=== PATIENT | female | born 1995 | race Caucasian/White ===

== ENCOUNTER 2019-08-04 12:08 | Observation (INO) | payer SELFPAY ==
[~2019-08-04 12:08] MED LIST: CEPHALEXIN500 M1 PO
[2019-08-04 13:04] LABS: BASO % 0.2 % (0.0-2.0); EOS # 0.1 (0.0-0.7); EOS % 0.3 % (0-4.0); GRAN # 13.7 (1.4-6.5); GRAN % 78.9 % (42.2-75.2); HEMOGLOBIN 11.7 g/dl (12.5-16.0); LYMPH # 2.5 (1.2-3.4); LYMPH % 14.3 % (20.0-51.0); MEAN CELL VOLUME 87 fl (80.0-100.0); MEAN CORPUSCULAR HEMOGLOBIN 31 pg (27.0-31.0); MEAN CORPUSCULAR HGB CONC 35 g/dl (33.0-37.0); MEAN PLATELET VOLUME 9.9 fl (7.4-10.4); PLATELET COUNT 246 K/mm3 (130-400); RED BLOOD COUNT 3.84 M/mm3 (4.10-5.30); REDCELL DISTRIBUTION WIDTH-CV 12.2 % (11.5-14.5)
[2019-08-04 13:05] LABS: HEMATOCRIT 33.4 % (37.0-47.0)
[2019-08-04 13:14] LABS: ALBUMIN 4.1 gm/dL (3.5-5.0); BILIRUBIN,TOTAL 0.7 mg/dL (0.0-1.0); CALCIUM 9.3 mg/dL (8.4-10.2); CREATININE, serum 0.46 (0.52-1.25); POTASSIUM 3.7 mmol/L (3.4-5.0); TOTAL PROTEIN 7.6 gm/dL (6.4-8.2)
--- NOTE | 2019-08-04 15:15 | NUR ---
1515 Patient to room 222 from ER via wheelchair. Patient is occitan speaking only and the manager battery line was used to communicate with patient. Patient alert and oriented, she c/o pain but is unable to rate it. She is visibly uncomfortable. Assessment completed, VSS. INT noted to right AC - LR started at 150 ml/hr. Patient oriented to call light.
[2019-08-04 15:30] VITALS: BP 100/59; PULSE 98; TEMP 98.3
--- NOTE | 2019-08-04 18:40 | NUR ---
In room for bedside report. Chastity Starks RN and Yasmeen Bailey RN attempt to doppler FHT but no FHT found. Ultrasound for FHT ordered per Dr. Gandhi order. Assessment and vital signs completed.
[2019-08-04 18:50] VITALS: BP 111/64; PULSE 94; TEMP 99.2
--- NOTE | 2019-08-04 19:35 | NUR ---
Ultrasound in room.
--- NOTE | 2019-08-04 20:32 | NUR ---
Patient resting in bed, does not appear to be in any physical discomfort at this time. Telephone validation leader hotline used to traslate to patient the findings from the ultrasound and further plan of care. Patient states understanding to validation leader and patient asks if she can eat. Patient rates current cramping pain a "2" and denies need for pain medication at this time. Dr. santoyo called and orders received.
[2019-08-04 21:28] VITALS: BP 104/65; PULSE 92; TEMP 98.5
--- NOTE | 2019-08-04 21:28 | NUR ---
Patient sitting up in bed talking to significant other. Patient sitting up in bed eating chicken and noodle soup.
[2019-08-05 01:36] VITALS: BP 94/60; PULSE 87; TEMP 98.6
[2019-08-05 04:55] VITALS: BP 93/64; PULSE 82; TEMP 99
--- NOTE | 2019-08-05 05:45 | NUR ---
at bedside. Speculum exam completed. Product of conception removed by . Discharge orders received. Pericare provided. Call light within reach.
[2019-08-05] MEDS ORDERED: MOTRIN 800800 MG/TAB PO (06:09)
--- NOTE | 2019-08-05 08:10 | NUR ---
Vital signs stable, pt denies any pain at this time. Assessment complete and vaginal bleeding scant at this time. 0842: Telephone deckhand hotline used to go over discharge instructions. Instructed pt on when and how to call the physician. Pt verbalizes understanding and does not have any questions. Prescription for Motrin given and F/U appt with Dr Gandhi given to patient for August 23 at 10am. Pt verbalizes understanding. 0900:Pt taken to personal vehicle per WC.
[2019-08-05 08:15] VITALS: BP 98/58; PULSE 85; TEMP 98.6
== END 2019-08-05 09:00 | disposition home or self-care (01) ==
LOC: COL.ER 12:08 → OB 14:31
PROVIDERS: Emergency Medicine; ADMIT Obstetrics & Gynecology
DX: O03.9 Complete or unspecified spontaneous abortion without complication (principal); Z87.448 Personal history of other diseases of urinary system
CPT/HCPCS: G0378; J1170; J1885; J2270; J3010; J7030; J7120

== ENCOUNTER 2020-09-23 07:56 | Inpatient (IN) | payer MEDICAID ==
[2020-09-23] VITALS (40 sets, daily range): BP systolic 101–134; BP diastolic 55–90; PULSE 77–116; TEMP 97.5–98.5
[~2020-09-23] VITALS: Ht 162.6 cm; Wt 84.1 kg
[~2020-09-23 07:56] MED LIST changes: +MOTRIN 800800 MG/TAB PO
--- NOTE | 2020-09-23 08:05 | NUR ---
0805-G2L0 39.2 week non-salvadorean speaking patient to LR 6 with complaints of contractions since 299. Blood Bank Business Manager line used. Cervix /-[address] Gandhi notified. Assessment complete. Conesents reviewed and signed. 0820-IV to right hand, blood collected and sent to lab per orders. ANDRES Aquino notified of patients desire for epdirual.
[2020-09-23 08:29] LABS: BASO % 0.1 % (0.0-2.0); EOS % 0.4 % (0-4.0); GRAN # 7.8 (1.4-6.5); GRAN % 73.2 % (42.2-75.2); HEMATOCRIT 37.9 % (37.0-47.0); HEMOGLOBIN 12.9 g/dl (12.5-16.0); LYMPH % 18.6 % (20.0-51.0); MEAN CELL VOLUME 84 fl (80.0-100.0); MEAN CORPUSCULAR HEMOGLOBIN 29 pg (27.0-31.0); MEAN CORPUSCULAR HGB CONC 34 g/dl (33.0-37.0); MEAN PLATELET VOLUME 10.6 fl (7.4-10.4); MONO # 0.8 (0.1-0.6); MONO % 7.2 % (1.7-9.3); PLATELET COUNT 205 K/mm3 (130-400); RED BLOOD COUNT 4.51 M/mm3 (4.10-5.30); REDCELL DISTRIBUTION WIDTH-CV 15.6 % (11.5-14.5)
--- NOTE | 2020-09-23 08:30 | NUR ---
Assumed care of patient. 0835 Dr. Gandhi here, visits with patient.
--- NOTE | 2020-09-23 09:00 | NUR ---
0905 Anesthesia here, visits with patient via enterpeter on the phone.09 Catheter placed by anesthesia Adrian barlow 09 Test dose given by anesthesia.
--- NOTE | 2020-09-23 10:45 | NUR ---
1050 Dr. Diehl here, arom done, small amount of light meconium fluid. Pad changed and repositioned.
--- NOTE | 2020-09-23 11:00 | NUR ---
Rests in bed, alert. Denies any needs at this time.
--- NOTE | 2020-09-23 11:30 | NUR ---
Rests in bed, alert. Denies any pain at this time.
--- NOTE | 2020-09-23 12:15 | NUR ---
1220 Dr. Hoffman here, visits with patient through translater. Pad changed, repositioned patient.
--- NOTE | 2020-09-23 14:00 | NUR ---
1410 Patient called out. Points down toward rectal area. Large amount of bowel movement, loose noted. This nurse and Blaire cleaned patient. Repositioned in bed.
--- NOTE | 2020-09-23 15:30 | NUR ---
Rests in bed, alert. Pad changed with loose tanish stool.
--- NOTE | 2020-09-23 16:00 | NUR ---
1610 Pushes with contractions. Does well with encouragement.
--- NOTE | 2020-09-23 16:30 | NUR ---
Continues to push with contractions.
--- NOTE | 2020-09-23 16:45 | NUR ---
1648 Dr. Hoffman called to come to delivery.1655 Dr. Hoffman in room, preps for delivery. Continues to push with contractions. 1655 Dr. Hoffman here, preps for delivery. 1712 Spontaneous delivery of baby girl by Dr. Hoffman. 1718 Spontaneous delivery of placenta by Dr. Hoffman. Pitocin started at 333ccs an hour.
--- NOTE | 2020-09-23 17:15 | NUR ---
Holds baby lovingly. Repair work done by Dr. Hoffman.
[2020-09-24 00:45] VITALS: BP 105/45; PULSE 90; TEMP 98.5
[2020-09-24 04:15] VITALS: BP 108/58; PULSE 100; TEMP 98
[2020-09-24 06:38] VITALS: BP 116/58; PULSE 107; TEMP 98.7
--- NOTE | 2020-09-24 06:50 | NUR ---
USED GFS IT TRANSLATE: PATIENT STATES SHE IS IN PAIN. MOTRIN PROVIDED. ASSEMENT COMPLETE, PATIENT STATES BABY IS HUNGRY. BOTTLE PROVIDED. ASKED PATIENT AND SIGNIFICANT OTHER WHAT THEY WOULD LIKE FOR BREAKFAST. PLACED BREASKFAST ORDER TO THE KITCHEN
[2020-09-24 07:33] LABS: HEMATOCRIT 29.2 % (37.0-47.0); HEMOGLOBIN 9.9 g/dl (12.5-16.0)
[2020-09-24] MEDS ORDERED: MOTRIN 800800 MG/TAB PO (09:50)
[2020-09-24 12:00] VITALS: BP 123/68; PULSE 80; TEMP 98
[2020-09-24 15:49] VITALS: BP 113/66; PULSE 90; TEMP 98
[2020-09-24 20:15] VITALS: BP 121/67; PULSE 92; TEMP 97.7
[2020-09-25 07:20] VITALS: BP 111/65; PULSE 93; TEMP 98.2
[2020-09-25] MEDS ORDERED: PERCOCET 325 MG1 TA2 PO (08:56)
== END 2020-09-25 11:20 | disposition home or self-care (01) | DRG 807 ==
LOC: LDRO 07:56 → OB 08:17 → LDR 08:17 → OB 20:50
PROVIDERS: Obstetrics & Gynecology; ADMIT Obstetrics & Gynecology
PROC: 10E0XZZ Delivery of Products of Conception, External Approach (ICD-10-PCS; principal; 2020-09-23)
PROC: 0KQM0ZZ Repair Perineum Muscle, Open Approach (ICD-10-PCS; 2020-09-23)
PROC: 10907ZC Drainage of Amniotic Fluid, Therapeutic from Products of Conception, Via Natural or Artificial Opening (ICD-10-PCS; 2020-09-23)
DX: O99.02 Anemia complicating childbirth (principal); Z37.0 Single live birth; O77.0 Labor and delivery complicated by meconium in amniotic fluid; O70.1 Second degree perineal laceration during delivery; Z3A.39 39 weeks gestation of pregnancy; D64.9 Anemia, unspecified
CPT/HCPCS: J2590; J7120

== ENCOUNTER 2022-01-11 04:43 | Inpatient (IN) | payer SELFPAY ==
[2022-01-11] VITALS (17 sets, daily range): BP systolic 74–140; BP diastolic 35–78; PULSE 68–111; TEMP 98.1–98.6
[~2022-01-11] VITALS: Ht 165.1 cm; Wt 84.5 kg
[~2022-01-11 04:43] MED LIST changes: +PERCOCET 325 MG1 TA2 PO
[2022-01-11 05:24] LABS: BASO % 0.3 % (0.0-2.0); EOS % 0.3 % (0.0-4.0); HEMATOCRIT 36.1 % (37.0-47.0); LYMPH # 3.7 K/mm3 (1.2-3.4); LYMPH % 31.9 % (20.0-51.0); MEAN CELL VOLUME 82 fl (80.0-100.0); MEAN CORPUSCULAR HEMOGLOBIN 27 pg (27-31); MEAN CORPUSCULAR HGB CONC 33 g/dl (33.0-37.0); MEAN PLATELET VOLUME 10.6 fl (7.4-10.4); MONO # 0.7 K/mm3 (0.1-0.6); MONO % 6.3 % (1.7-9.3); PLATELET COUNT 277 K/mm3 (130-400); RED BLOOD COUNT 4.38 M/mm3 (4.10-5.30); REDCELL DISTRIBUTION WIDTH-CV 13.6 % (11.5-14.5)
--- NOTE | 2022-01-11 05:30 | NUR ---
EVERTON CAMPOS HERE TO PLACE EPIDURAL, PT IS SITTING UP FOR PLACEMENT. 0544 TEST DOSE GIVEN. 0550 PT TO SEMI FOWLERS POSITION. BP 103/59, P-109, RESP 20 FHR 135, MOD VARIBILTY, ACCELS, NO DECELS.
--- NOTE | 2022-01-11 06:30 | NUR ---
0615- IN PATIENT ROOM TO PERFORM VAGINAL EXAM. SVE . AROM PERFORMED BY . PATIENT TOLERATED WELL. EFM TRACING REASSURING. 0625- PT BP 88/44 NOTED BY THIS RN. 0635- THIS RN ADMINISTERED INITIAL 10MG EPHEDRINE PER PRN ORDER FOR LOW BP. 0641- BP REASSESSED, 87/49. THIS RN ADMINISTERED A SECOND DOSE OF 10MG EPHEDRINE PER ORDER. 0646- BP REASSESSED 95/55.
--- NOTE | 2022-01-11 07:46 | NUR ---
0762- Dr Gandhi at bedside. Pt and room prepped for delivery. [facility] [employer] at bedside. Pt begins pushing with [facility]. 0746- of viable male , infant dried and stimulated by MD, vigorous crying noted. Cord clamped and cut. Infant to mother's abd where tended to by nursery RNs. 0750- Spontaneous delivery of placenta. Pitocin started at 333ml/hr. Fundus massaged to firm by MD. Perineum intact per MD. Pericare performed. Clean chux and ice pack under Pt. Pt repositioned to high fowlers. skin-2-skin with mother.
[2022-01-11] MEDS ORDERED: PRENATAL TABLET PO (09:34)
--- NOTE | 2022-01-11 10:10 | NUR ---
Using [employer]: Pt ambulates to to bathroom with standby assist. Voids a large amount in toilet, not measures. Pericare completed and explained. Pt transfered to [facility] via wheelchair. Oriented to room. Pt denies needs at this time. Call light within reach.
[2022-01-12 06:45] VITALS: BP 134/84; PULSE 88; TEMP 98.2
[2022-01-12] MEDS ORDERED: MOTRIN 800800 MG/TAB PO (07:29)
--- NOTE | 2022-01-12 09:44 | NUR ---
Initial visit; Parents appeared to speak Espanol only. Forestry Pilot smiled and let them know by the sign of the cross and pointing to herself who she was. They smiled and nodded "thank you."
--- NOTE | 2022-01-12 15:30 | NUR ---
1530-Discharge instructions reviwed with patient by LARON Ch. Patient explained in detail border status. All questions answered. remains in nursery care.
== END 2022-01-12 15:42 | disposition home or self-care (01) | DRG 807 ==
LOC: LDRO 04:43 → LDR 05:16 → OB 05:16
PROVIDERS: ADMIT Student in an Organized Health Care Education/Training Program
PROC: 10E0XZZ Delivery of Products of Conception, External Approach (ICD-10-PCS; principal; 2022-01-11)
PROC: 10907ZC Drainage of Amniotic Fluid, Therapeutic from Products of Conception, Via Natural or Artificial Opening (ICD-10-PCS; 2022-01-11)
DX: O76 Abnormality in fetal heart rate and rhythm complicating labor and delivery (principal); Z37.0 Single live birth; Z3A.39 39 weeks gestation of pregnancy
CPT/HCPCS: J2590; J2795; J7120